=== PATIENT | female | born 1985 | race American Indian/Alaskan Native ===

== ENCOUNTER 2018-09-17 21:23 | Emergency (ER) | payer SELFPAY ==
[2018-09-17] MEDS ORDERED: ASPIRIN PO ONE (21:55)
[2018-09-17] MEDS ORDERED: TYLENOL PO ONE (22:15)
[2018-09-17] MEDS ORDERED: TORADOL IM ONE (22:15)
[2018-09-17] MEDS ORDERED: TORADOL ONE (22:18)
--- NOTE | 2018-09-17 22:19 | Emergency Department Report ---
ED General Adult HPI - General Chief complaint: Dizziness Stated complaint: DIZZINESS/CP/FLU SX Time Seen by Provider: 09/17/18 22:09 Source: patient Mode of arrival: Ambulatory Limitations: No Limitations - History of Present Illness Initial comments: Patient is 32 years old female with no significant past medical history. Patient presented to the ER complaining of fever and generalized body ache, cough and runny nose. Patient stated that she was fine until this evening. Patient stated that she has a sick coworker was a same symptoms. Patient denied any nausea or vomiting. No abdominal pain . - Related Data Allergies Allergy/AdvReac Type Severity Reaction Status Date / Time carrot Allergy Angioedema Verified 09/17/18 21:42 ED Review of Systems ROS: Stated complaint: DIZZINESS/CP/FLU SX Other details as noted in HPI Comment: All other systems reviewed and negative Constitutional: chills, fever, malaise ENT: congestion Respiratory: cough. denies: orthopnea, shortness of breath, SOB with exertion, SOB at rest Cardiovascular: denies: chest pain, palpitations Gastrointestinal: denies: abdominal pain, nausea, vomiting, diarrhea, constipation, hematemesis, melena Musculoskeletal: arthralgia, myalgia Neurological: headache. denies: weakness, numbness, paresthesias, confusion, abnormal gait, vertigo ED Past Medical Hx - Past Medical History Previous Medical History?: Yes Hx of Cancer: Yes (CERVICAL AND UTERUS) Hx Psychiatric Treatment: Yes (PTSD DEPRESSION ANXIETY) Additional medical history: PT - Surgical History Past Surgical History?: Yes Additional Surgical History: PARTIAL HYSTERECTOMY 2004. RIGHT ANKLE 2013. LUMPECTOMY 2018 - Social History Smoking Status: Current Every Day Smoker Substance Use Type: None ED Physical Exam - General Limitations: No Limitations General appearance: alert, in no apparent distress - Head Head exam: Present: atraumatic, normocephalic, normal inspection - Eye Eye exam: Present: normal appearance - ENT ENT exam: Present: normal exam, normal orophraynx, mucous membranes moist - Neck Neck exam: Present: normal inspection, full ROM. Absent: tenderness, meningismus, lymphadenopathy, thyromegaly - Respiratory Respiratory exam: Present: normal lung sounds bilaterally. Absent: respiratory distress, wheezes, rales, rhonchi, stridor, chest wall tenderness, accessory muscle use, decreased breath sounds, prolonged expiratory - Cardiovascular Cardiovascular Exam: Present: regular rate, normal rhythm, normal heart sounds - GI/Abdominal GI/Abdominal exam: Present: soft, normal bowel sounds. Absent: distended, tenderness, guarding, rebound, rigid, organomegaly, mass, bruit, pulsatile mass, hernia - Extremities Exam Extremities exam: Present: normal inspection, full ROM, normal capillary refill. Absent: pedal edema, calf tenderness - Back Exam Back exam: Present: normal inspection, full ROM. Absent: CVA tenderness (R), CVA tenderness (L), muscle spasm, paraspinal tenderness, vertebral tenderness, rash noted - Neurological Exam Neurological exam: Present: alert, oriented X3, CN II-XII intact, normal gait, reflexes normal - Skin Skin exam: Present: warm, intact, normal color ED Course Vital Signs 09/17/18 09/17/18 21:42 22:50 Temperature 101.1 F H 102.6 F H Pulse Rate 18 L 105 H Respiratory 18 16 Rate Blood Pressure 124/82 Blood Pressure 124/71 [Left] O2 Sat by Pulse 98 100 Oximetry ED Medical Decision Making - Lab Data Result diagrams: 09/17/18 22:32 09/17/18 22:32 - Medical Decision Making Patient is 32 years old female with no significant past medical history. Patient presented to the ER complaining of fever and generalized body ache, cough and runny nose. Patient stated that she was fine until this evening. Pat yana stated that she has a sick coworker was a same symptoms. Patient denied any nausea or vomiting. No abdominal pain . Patient stated that she is feeling much better. Influenza test is negative. I advised the patient to follow-up with her primary care physician in the next 2-3 days and to return to the ER if her symptoms are not improved. Critical care attestation.: If time is entered above; I have spent that time in minutes in the direct care of this critically ill patient, excluding procedure time. ED Disposition Clinical Impression: Viral syndrome, Cough Disposition: -01 TO HOME OR SELFCARE Is pt being admited?: No Condition: Stable Instructions: Viral Syndrome (ED) Referrals: PRIMARY CARE, [Primary Care Provider] - 3-5 Days Forms: Work/School Release Form(ED)
[2018-09-17 22:53] LABS: Basophils % (Auto) 0.4 % (0.0-1.8); Eosinophils % (Auto) 0.5 % (0.0-4.3); Hematocrit 41.4 % (30.3-42.9); Hemoglobin 14.2 gm/dl (10.1-14.3); Lymphocytes # (Auto) 0.4 K/mm3 (1.2-5.4); Lymphocytes % (Auto) 5.3 % (13.4-35.0); Mean Corpuscular HGB Conc 34 % (30-34); Mean Corpuscular Volume 93 fl (79-97); Monocytes # (Auto) 0.6 K/mm3 (0.0-0.8); Monocytes % (Auto) 6.7 % (0.0-7.3); Platelet Count 214 K/mm3 (140-440); Red Blood Count 4.47 M/mm3 (3.65-5.03)
[2018-09-17 23:08] LABS: BUN/Creatinine Ratio 9; Blood Urea Nitrogen 7 mg/dL (7-17); Calcium 8.9 mg/dL (8.4-10.2); Hemolysis Index 7
[2018-09-17 23:19] VITALS: BP 124/71
== END 2018-09-18 01:41 | disposition home or self-care (01) ==
LOC: ED 21:23
DX: B34.9 Viral infection, unspecified (principal); F43.10 Post-traumatic stress disorder, unspecified; F32.9 Major depressive disorder, single episode, unspecified; F41.9 Anxiety disorder, unspecified; F17.200 Nicotine dependence, unspecified, uncomplicated; Z90.711 Acquired absence of uterus with remaining cervical stump; Z91.018 Allergy to other foods
CPT/HCPCS: 36415; 80048; 84484; 85025; 87400; 93005; 93010; 96372; 99284; J1885

== ENCOUNTER 2019-09-28 01:53 | Emergency (ER) | payer SELFPAY ==
[2019-09-28 03:30] LABS: Basophils % (Auto) 0.5 % (0.0-1.8); Eosinophils # (Auto) 0.1 K/mm3 (0.0-0.4); Eosinophils % (Auto) 0.8 % (0.0-4.3); Hematocrit 43.8 % (30.3-42.9); Hemoglobin 15.1 gm/dl (10.1-14.3); Lymphocytes # (Auto) 3.1 K/mm3 (1.2-5.4); Lymphocytes % (Auto) 29.9 % (13.4-35.0); Mean Corpuscular HGB Conc 34 % (30-34); Mean Corpuscular Volume 96 fl (79-97); Monocytes # (Auto) 0.8 K/mm3 (0.0-0.8); Monocytes % (Auto) 7.5 % (0.0-7.3); Platelet Count 241 K/mm3 (140-440); Red Blood Count 4.59 M/mm3 (3.65-5.03); Red Cell Distribution Width 16.3 % (13.2-15.2)
[2019-09-28 03:57] LABS: Alanine Aminotransferase 9 units/L (7-56); Albumin 4.2 g/dL (3.9-5); BUN/Creatinine Ratio 11; Blood Urea Nitrogen 9 mg/dL (7-17); Calcium 9.6 mg/dL (8.4-10.2); Hemolysis Index 5
[2019-09-28 05:05] LABS: Bilirubin,Urine NEG (Negative); Blood,Urine SM (Negative); Color,Urine Yellow (Yellow); Mucus,Urine FEW /HPF; Protein,Urine <15 mg/dL mg/dL (Negative); Urobilinogen,Urine < 2.0 mg/dL (<2.0)
[2019-09-28] MEDS ORDERED: traMADol 50 MG TAB PO ONE (07:30)
--- NOTE | 2019-09-28 07:36 | Emergency Department Report ---
ED Female HPI - General Chief complaint: Abdominal Pain Stated complaint: SHARP ABD PAIN LOWER RIGHT SIDE Time Seen by Provider: 09/28/19 07:22 Source: patient Mode of arrival: Ambulatory Limitations: No Limitations - History of Present Illness Initial comments: This is a 33-year-old female complaining of right abdominal pain and right flank pain. Pain started on . Associated with urinary frequency and urgency. Patient denies fever nausea vomiting and diarrhea. Patient has a history of partial hysterectomy at age 17. She denies any ongoing medical conditions. -: days(s) (4) Radiation: R flank Severity: moderate Quality: aching Improves with: none Worsens with: none Are you Now?: No (Hx of partial hysterectomy at age 17) Associated Symptoms: abdominal pain. denies: vaginal discharge, vaginal bleeding, nausea/vomiting, fever/chills, headaches, loss of appetite, dysuria, hematuria, rash, seizure, shortness of breath, syncope, weakness - Related Data Previous Rx's Medication Instructions Recorded Last Taken Type Fluconazole [Diflucan TAB] 200 mg PO QDAY #1 tablet 09/28/19 Unknown Rx cephALEXin [Keflex] 500 mg PO Q12HR 7 Days #14 cap 09/28/19 Unknown Rx Allergies Allergy/AdvReac Type Severity Reaction Status Date / Time carrot Allergy Angioedema Verified 09/17/18 21:42 prochlorperazine Allergy Swelling Verified 09/28/19 02:14 [From Compazine] ED Review of Systems ROS: Stated complaint: SHARP ABD PAIN LOWER RIGHT SIDE Other details as noted in HPI Comment: All other systems reviewed and negative Constitutional: denies: chills, fever ENT: denies: throat pain Respiratory: no symptoms reported. denies: cough Gastrointestinal: abdominal pain. denies: nausea, vomiting, diarrhea, constipation Genitourinary: urgency, frequency, other (right flank pain). denies: hematuria, discharge ED Past Medical Hx - Past Medical History Previous Medical History?: Yes Hx Psychiatric Treatment: Yes (PTSD DEPRESSION ANXIETY) Additional medical history: PT - Surgical History Past Surgical History?: Yes Additional Surgical History: PARTIAL HYSTERECTOMY 2003. RIGHT ANKLE 2012. LUMPECTOMY 2018 - Social History Smoking Status: Current Every Day Smoker Substance Use Type: None - Medications Home Medications: Home Medications Medication Instructions Recorded Confirmed Last Taken Type Fluconazole [Diflucan TAB] 200 mg PO QDAY #1 tablet 09/28/19 Unknown Rx cephALEXin [Keflex] 500 mg PO Q12HR 7 Days #14 cap 09/28/19 Unknown Rx ED Physical Exam - General Limitations: No Limitations General appearance: alert, in no apparent distress - Head Head exam: Present: atraumatic - ENT ENT exam: Present: normal exam - Neck Neck exam: Present: normal inspection - Respiratory Respiratory exam: Present: normal lung sounds bilaterally. Absent: respiratory distress, wheezes, rales, rhonchi - Cardiovascular Cardiovascular Exam: Present: normal heart sounds - GI/Abdominal GI/Abdominal exam: Present: soft, tenderness (generalized tenderness), normal bowel sounds. Absent: distended, guarding, rebound, rigid - Back Exam Back exam: Present: normal inspection, CVA tenderness (R). Absent: CVA tenderness (L), rash noted - Neurological Exam Neurological exam: Present: alert, oriented X3 - Psychiatric Psychiatric exam: Present: normal affect - Skin Skin exam: Present: warm, dry, intact, normal color. Absent: rash ED Course Vital Signs 09/28/19 02:01 Temperature 98.3 F Pulse Rate 80 Respiratory 18 Rate Blood Pressure 126/90 O2 Sat by Pulse 99 Oximetry ED Medical Decision Making - Lab Data Result diagrams: 09/28/19 03:11 09/28/19 03:11 - Medical Decision Making 33 yo female with c/o right flank and righ abd pain along with frequent urination and urgency Urine WBC 87. CBC wnl. Chem wnl Pt afebrile normal vital signs. Dx with UTI Yeast in urine Treat with Diflucan and Cephalexin Critical Care Time: No Critical care attestation.: If time is entered above; I have spent that time in minutes in the direct care of this critically ill patient, excluding procedure time. ED Disposition Clinical Impression: UTI (urinary tract infection) Qualifiers: Urinary tract infection type: acute cystitis Hematuria presence: with hematuria Qualified Code(s): N30.01 - Acute cystitis with hematuria Disposition: TO HOME OR SELFCARE Is pt being admited?: No Does the pt Need Aspirin: No Condition: Stable Instructions: Abdominal Pain (ED), Urinary Tract Infection in Women (ED) Additional Instructions: Increase water intake to 6-8glasses per day. Do not hold urine, pee after sex. Follow up with [facility] to get urine culture report. Return to the ER for worsening abdominal or flank pain, fever or chills Prescriptions: Fluconazole [Diflucan TAB] 200 mg PO QDAY #1 tablet cephALEXin [Keflex] 500 mg PO Q12HR 7 Days #14 cap Referrals: PRIMARY CARE, [Primary Care Provider] - 3-5 Days KERRY MAST MD [Staff Physician] - 3-5 Days Time of Disposition: 07:42
[2019-09-28 07:49] VITALS: BP 121/84
== END 2019-09-28 07:48 | disposition home or self-care (01) ==
LOC: ED 01:53
DX: N39.0 Urinary tract infection, site not specified (principal); F17.200 Nicotine dependence, unspecified, uncomplicated
CPT/HCPCS: 36415; 80053; 81001; 83690; 85025; 87086; 99283